=== PATIENT | male | born 1995 | race African-American/Black ===

== ENCOUNTER 2017-06-07 12:53 | Emergency (ER) | payer OTHER ==
[2017-06-07 12:58] VITALS: BMI 19.0
[2017-06-07] MEDS ORDERED: ONDANSETRON *ODT* 4 MG TABLET SL ONE (13:35)
[2017-06-07] MEDS ORDERED: ONDANSETRON *ODT* 4 MG TABLET ONE (13:36)
--- NOTE | 2017-06-07 13:42 | PDOC ---
History of Present Illness - General Chief Complaint: Nausea/Vomiting Stated Complaint: VOMITING Time Seen by Provider: 06/07/17 13:15 History Source: Patient Exam Limitations: No Limitations - History of Present Illness Travel History: No Initial Comments: 06/07/17 13:38 22-year-old male with no past medical history presents the ED with complaints of vomiting intimately since 8 AM and feeling generally weak. Patient states was drinking rum and smoking marijuana at a libertarian last night more than he normally does. Patient states had approximately 10 shots of rum then at that point he states started to "black out ". Patient states woke up this morning to get ready for work when he started experiencing nausea followed by multiple episodes of vomiting. Patient denies abdominal pain but does state has only voided once since last night. Patient has no other complaints at this time. Timing/Duration: reports: intermittent Aggravating Factors: improves with: None Alleviating Factors: improves with: None Past History - Travel Traveled outside of the country in the last 30 days: No Close contact w/someone who was outside of country & ill: No - Past Medical History Allergies/Adverse Reactions: Allergies Allergy/AdvReac Type Severity Reaction Status Date / Time No Known Allergies Allergy Verified 06/07/17 12:58 Home Medications: Ambulatory Orders Ondansetron HCl [Zofran] 4 mg PO TID PRN #12 tablet 06/07/17 Other medical history: G6PD - Psycho/Social/Smoking Cessation Hx Suicidal Ideation: No Smoking History: Never smoked Hx Alcohol Use: Yes (SOCIAL) Drug/Substance Use Hx: Yes (MARIJUANA) Substance Use Type: Marijuana Patient Lives Alone: No Lives with/in: parents Review of Systems - Review of Systems Able to Perform ROS?: Yes Constitutional: Yes: Weakness Respiratory: No: Symptoms reported ABD/GI: Yes: Nausea, Vomiting : No: Symptoms Reported Musculoskeletal: No: Symptoms Reported Neurological: Yes: Weakness. No: Headache *Physical Exam - Vital Signs Last Vital Signs Temp Pulse Resp BP Pulse Ox 97.8 F 75 20 142/65 100 06/07/17 12:54 06/07/17 12:54 06/07/17 12:54 06/07/17 12:54 06/07/17 12:54 - Physical Exam General Appearance: Yes: Nourished, Appropriately Dressed. No: Apparent Distress HEENT: positive: GIDEON, TMs Normal, Pharynx Normal Neck: positive: Supple Respiratory/Chest: positive: Lungs Clear, Normal Breath Sounds. negative: Respiratory Distress, Accessory Muscle Use Cardiovascular: positive: Regular Rhythm, Regular Rate. negative: Murmur Gastrointestinal/Abdominal: positive: Soft. negative: Tenderness Integumentary: positive: Normal Color, Warm, Moist Neurologic: positive: Normal Mood/Affect, Motor Strength 5/5 Medical Decision Making - Medical Decision Making 06/07/17 13:41 Patient with sudden onset of nausea and vomiting secondary to excessive amount of etoh. Patient on exam had no acute findings. Patient will be ordered sublingual Zofran and then given a by mouth challenge of apple juice. If patient tolerates will discharge home with the same. 06/07/17 14:24 Patient tolerated Juice and states feeling better. Patient will be discharge home with recommendations to follow bland diet for the next 48 hours and take Zofran as needed for nausea. Patient also recommended symptoms return or worsen to return to the ED. *DC/Admit/Observation/Transfer Diagnosis at time of Disposition: Excessive drinking of alcohol, Vomiting - Discharge Dispostion Disposition: HOME Condition at time of disposition: Improved - Prescriptions Prescriptions: Ondansetron HCl [Zofran] 4 mg PO TID PRN #12 tablet PRN Reason: Nausea And/Or Vomiting - Referrals Referrals: Chetan Allen MD [Primary Care Provider] - - Patient Instructions Printed Discharge Instructions: DI for Vomiting -- Adult, DI for Alcohol Poisoning Additional Instructions: Although he has not been diagnosed with alcohol poisoning I'm giving him instructions on symptoms to look out for. You may take Zofran as needed for nausea and please follow bland diet for the next 48 hours. - Post Discharge Activity Work/School Note: Back to Work
[2017-06-07 14:35] VITALS: BP 132/78; PULSE 84; TEMP 98.6
== END 2017-06-07 14:35 | disposition home or self-care (01) ==
LOC: JER 12:53
DX: F10.10 Alcohol abuse, uncomplicated (principal); F12.10 Cannabis abuse, uncomplicated
CPT/HCPCS: 99282-25